=== PATIENT | male | born 1965 ===

== ENCOUNTER 2017-12-19 19:56 | Emergency (ER) | payer BC ==
[2017-12-19] MEDS ORDERED: Sodium Chloride 0.9% 1,000 ML IV STA (20:19)
--- NOTE | 2017-12-19 20:20 | C.PDOC ---
History Of Present Illness Patient is a 51 y/o male who presents to the ED with complaints of fever, vomiting, body aches, chills, and lightheadedness s/p ureteral stent removal by Dr. Glover on Sunday 12/17. Patient notes feeling okay yesterday, but today experienced sudden onset of symptoms. Patient adds having 6 episodes of vomiting. Denies any dysuria, hematuria, diarrhea, cough, SOB, or allergies to any medications. Patient admits to taking antibiotics but denies any other medications. Patient's PMD is Dr. Gary Sparrow. Time Seen by Provider: 12/19/17 20:11 Chief Complaint (Nursing): Fever History Per: Patient History/Exam Limitations: no limitations Onset/Duration Of Symptoms: Hrs Current Symptoms Are (Timing): Still Present Associated Symptoms: Chills, Myalgias, Vomiting. denies: Diarrhea Recent travel outside of the [place]: No Past Medical History Reviewed: Historical Data, Nursing Documentation, Vital Signs Vital Signs: Last Vital Signs Temp 99.0 F 12/20/17 00:03 Pulse 90 12/20/17 05:44 Resp 16 12/20/17 05:44 BP 114/81 12/20/17 05:44 Pulse Ox 98 12/20/17 05:44 - Medical History PMH: Back Problems, Kidney Stones Other Surgeries: right ureteral stent placement 12/01/17 - [facility] DILATION OF RIGHT URETER WITH INTRALUMINAL DEVICE, ENDO (12/01/17) Family History: States: No Known Family Hx - Social History Hx Tobacco Use: No Hx Alcohol Use: No Hx Substance Use: No - Immunization History Hx Tetanus Toxoid Vaccination: No Hx Influenza Vaccination: Yes Hx Pneumococcal Vaccination: No Review Of Systems Except As Marked, All Systems Reviewed And Found Negative. Constitutional: Positive for: Fever (subjective), Chills Respiratory: Negative for: Cough, Shortness of Breath Gastrointestinal: Positive for: Vomiting Musculoskeletal: Positive for: Other (diffuse body aches) Neurological: Positive for: Other (lightheadedness) Physical Exam - Physical Exam Additional Physical Exam Comments: Constitutional: No acute distress. Head: Normocephalic. Atraumatic. Eyes: PERRL. ENT: Moist mucous membranes. Neck: Supple. Cardiovascular: Borderline tachycardic. Chest: No tenderness. Respiratory: Clear to auscultation bilaterally. GI: Soft. Nontender. Nondistended. Back: No CVA tenderness. Musculoskeletal: No tenderness or swelling of extremities. Skin: No rash. Neurologic: Alert, no focal deficit. ED Course And Treatment - Laboratory Results Result Diagrams: 12/19/17 20:26 12/19/17 20:26 ECG: Interpreted By Me, Viewed By Me ECG Rhythm: Sinus Rhythm ECG Interpretation: Normal Interpretation Of ECG: no st/t wave changes. Rate From EC (bpm) O2 Sat by Pulse Oximetry: 96 - Radiology CXR: Interpreted by Me, Viewed By Me CXR Interpretation: Yes: No Acute Disease Progress Note: VBG, EKG, CXR, UA, and blood work ordered. Tyelnol, toradol, zofran, and IV fluids administered. Medical Decision Making Medical Decision Making: CXR: no acute disease. Lactate negative, vital signs normalized, no UTI. Patient feels better. Will discharge, f/u with Dr. Glover, has antibiotics for 10 days, instructed to return to ED for worsening pain, fever, vomiting, dyspnea, lethargy, or any other problem. Disposition - Disposition Referrals: Oscar Glover MD [Staff Provider] - Disposition: HOME/ ROUTINE Disposition Time: 23:00 Condition: STABLE Prescriptions: Ondansetron ODT [Zofran ODT] 4 mg PO Q8 #12 odt Instructions: Fever, Adult (DC) Forms: [facility] (O[place]i) - Clinical Impression Clinical Impression: Fever - Scribe Statement The provider has reviewed the documentation as recorded by the Scribe Nayla Lester All medical record entries made by the Scribe were at my direction and personally dictated by me. I have reviewed the chart and agree that the record accurately reflects my personal performance of the history, physical exam, medical decision making, and the department course for this patient. I have also personally directed, reviewed, and agree with the discharge instructions and disposition.
[2017-12-19 20:30] LABS: BASO # 0.1 K/uL (0.0-0.2); HEMOGLOBIN 14.5 g/dL (12.0-18.0); MONO # 0.9 K/uL (0.0-0.8); WHITE BLOOD COUNT 13.6 K/uL (4.8-10.8)
[2017-12-19 20:32] LABS: VENOUS BLOOD GAS BASE EXCESS -0.3 mmol/L (0.0-2.0); VENOUS BLOOD GAS PCO2 26 mmHg (40-60); VENOUS BLOOD GAS PO2 72 mm/Hg (30-55); VENOUS BLOOD PH 7.52 (7.32-7.43)
[2017-12-19 20:32] LABS: BASO % 0.6 % (0.0-2.0); EOS # 0.1 K/uL (0.0-0.7); EOS % 0.4 % (0.0-4.0); LYMPH # 2.5 K/uL (1.0-4.3); LYMPH % 18.2 % (20.0-40.0); MEAN CELL VOLUME 81.7 fL (80.0-94.0); MEAN CORPUSCULAR HEMOGLOBIN 28.5 pg (27.0-31.0); MEAN CORPUSCULAR HGB CONC 34.9 g/dL (33.0-37.0); MEAN PLATELET VOLUME 6.9 fL (7.2-11.7); MONO % 6.8 % (0.0-10.0); NEUT # 10.1 K/uL (1.8-7.0); NRBC % 0.3 % (0.0-2.0); RBC 5.1 Mil/uL (4.40-5.90); RED CELL DISTRIBUTION WIDTH 13.2 % (11.5-14.5)
[2017-12-19] MEDS ORDERED: Sodium Chloride 0.9% 1,000 ML ONE (20:32)
[2017-12-19 20:46] LABS: ALB/GLOB RATIO 1.1 (1.0-2.1); ALBUMIN 4.1 g/dL (3.5-5.0); ALT/SGPT 46 U/L (21-72); AST/SGOT 22 U/L (17-59); BLOOD UREA NITROGEN 14 mg/dL (9-20); CALCIUM 9.2 mg/dl (8.6-10.4); GFR AFRICAN-AMERICAN > 60; GFR NON-AFRICAN AMERICAN > 60; LIPASE 142 U/L (23-300)
[2017-12-19 21:24] LABS: URINE BILIRUBIN NEGATIVE (NEGATIVE); URINE CLARITY Clear (Clear); URINE COLOR Yellow (YELLOW); URINE GLUCOSE (UA) NORMAL (Normal); URINE LEUKOCYTE ESTERASE NEG Leu/uL (Negative); URINE PROTEIN NEGATIVE (NEGATIVE); URINE UROBILINOGEN NORMAL mg/dL (0.2-1.0)
[2017-12-19 21:31] LABS: URINE BLOOD 2+ (NEGATIVE)
[2017-12-20 00:05] VITALS: TEMP 99
[2017-12-20 05:45] VITALS: BP 114/81; PULSE 90; RESP 16
[2017-12-20 05:54] VITALS: O2SAT 96
--- NOTE | 2017-12-20 08:05 | RAD ---
Chest x-ray single frontal view History: Fever. Comparison: 08/23/2014 Findings Mild venous congestion. Right hilar prominence. Left basilar atelectasis. Upper lobe granulomatous changes. Heart size within normal limits. Degenerative changes in the spine. Impression: Mild venous congestion. Right hilar prominence. Left basilar atelectasis. Upper lobe granulomatous changes. Heart size within normal limits. Degenerative changes in the spine.
--- NOTE | 2017-12-21 12:15 | CARD ---
APPROVED REPORT EKG Measurement Heart [id number] <Conclusion> Sinus tachycardia Otherwise normal ECG
== END 2017-12-20 06:02 | disposition home or self-care (01) ==
LOC: C.ER 19:56
DX: R50.9 Fever, unspecified (principal)
CPT/HCPCS: 71045; 80053; 81001; 82803; 83690; 85025; 87040; 87086; 93005; 96361; 96374; 96375; 99285; J1885; J2270; J2405; J7030